=== PATIENT | female | born 1995 | race Caucasian/White ===

== ENCOUNTER 2017-05-16 20:49 | Emergency (ER) | payer SELFPAY ==
--- NOTE | 2017-05-16 21:59 | ED PDOC ---
Arrival/HPI - General Chief Complaint: Back Pain Time Seen by Provider: 05/16/17 21:19 Historian: Patient - History of Present Illness Narrative History of Present Illness (Text): 05/16/17 21:55 21 year old female, wit history of kidney pain. presenting 1 month ago with sore throat, headache, fever. She had taken what was left of 's abx and symptoms subsided. However they then came back within few days. 2 weeks ago started experiencing right flank pain. 2 days ago, began experiencing dysuria. Still complaining of fever, chills, nausea, diarrrhea, throat pain, and lump under right jaw. States that she had similar kidney pain before and was treated in [place] with abx and citric acid. Moved to [facility] 5 years ago from [place]. She also reports had period last month after not having one for 3 months. Described as heavy bleeding and painful. No PMD Past Medical History - Provider Review Nursing Documentation Reviewed: Yes - Infectious Disease Hx of Infectious Diseases: None - Psychiatric Hx Substance Use: No - Anesthesia Hx Anesthesia: No Family/Social History - Physician Review Nursing Documentation Reviewed: Yes Family/Social History: No Known Family HX Smoking Status: Never Smoked Hx Alcohol Use: No Hx Substance Use: No Allergies/Home Meds Allergies/Adverse Reactions: Allergies No Known Allergies Allergy (Verified 05/16/17 21:07) Review of Systems - Review of Systems Constitutional: Fevers Eyes: Normal ENT: Other (throat pain) Respiratory: Normal Cardiovascular: Normal Gastrointestinal: Diarrhea, Nausea Genitourinary Female: absent: Dysuria Musculoskeletal: Other (right flank pain) Skin: Normal Neurological: Headache Endocrine: Normal Hemo/Lymphatic: Normal Psychiatric: Normal Physical Exam Vital Signs Reviewed: Yes Vital Signs Temp Pulse Resp BP Pulse Ox 05/16/17 21:07 97.4 F L 116 H 16 129/88 99 Temperature: Afebrile Blood Pressure: Normal Pulse: Regular Respiratory Rate: Normal Appearance: Positive for: Well-Appearing Pain Distress: None Mental Status: Positive for: Alert and Oriented X 3 - Systems Exam Pharnyx: Present: ERYTHEMA Neck: Present: Other (bilateral adenopathy; tender to palpation) Respiratory/Chest: Present: Clear to Auscultation, Good Air Exchange. No: Respiratory Distress, Accessory Muscle Use Cardiovascular: Present: Regular Rate and Rhythm, Normal S1, S2. No: Murmurs Abdomen: Present: Tenderness (RUQ/RLQ and surpapubic tenderness) Medical Decision Making ED Course and Treatment: 05/16/17 21:56 Impression: 21 year old female with right flank pain. Plan: -- Chest X-ray -- Labs -- Urinalysis -- Toradol -- Reassess and disposition Progress Notes: - Lab Interpretations Lab Results: 05/16/17 22:00 Lab Results 05/16/17 22:00: Urine Color Yellow, Urine Appearance Clear, Urine pH 6.0, Ur Specific [place] 1.010, Urine Protein Negative, Urine Glucose (UA) Negative, Urine Ketones Negative, Urine Blood Negative, Urine Nitrate Negative, Urine Bilirubin Negative, Urine Urobilinogen 0.2, Ur Leukocyte Esterase Trace H, Urine RBC 0 - 2, Urine WBC 1 - 3, Ur Epithelial Cells 10 - 12, Urine Bacteria Many, Urine HCG, Qual Negative 05/16/17 22:00: WBC 13.4 H, RBC 4.51, Hgb 13.2, Hct 39.9, MCV 88.5, MCH 29.3, MCHC 33.1, RDW 14.9 H, Plt Count 442, MPV 10.9, Gran % 65.7, Lymph % (Auto) 27.1 , [place] % (Auto) 6.5 H, Eos % (Auto) 0.5 L, Baso % (Auto) 0.2, Gran # 8.78 H, Lymph # 3.6 H, Gibson # 0.9 H, Eos # 0.1, Baso # 0.03 - RAD Interpretation Radiology Orders: 05/16/17 21:38 CHEST PORTABLE [RAD] Stat - Medication Orders Current Medication Orders: Ceftriaxone Sodium (Rocephin 1 Gram Ivpb) 1 gm in 100 mls @ 200 mls/hr IVPB STAT STA PRN Reason: Protocol Stop: 05/16/17 22:55 Discontinued Medications Ketorolac Tromethamine (Toradol) 60 mg IM STAT STA Stop: 05/16/17 21:40 - Scribe Statement The provider has reviewed the documentation as recorded by the Sanjeeviboctavio Hardwick Provider Scribe Attestation: All medical record entries made by the Scribe were at my direction and personally dictated by me. I have reviewed the chart and agree that the record accurately reflects my personal performance of the history, physical exam, medical decision making, and the department course for this patient. I have also personally directed, reviewed, and agree with the discharge instructions and disposition. Disposition/Present on Arrival - Present on Arrival Any Indicators Present on Arrival: No History of DVT/PE: No History of Uncontrolled Diabetes: No Urinary Catheter: No History of Decub. Ulcer: No History Surgical Site Infection Following: None - Disposition Have Diagnosis and Disposition been Completed?: Yes Diagnosis: Cervical lymphadenitis Disposition: HOME/ ROUTINE Disposition Time: 22:55 Patient Plan: Discharge Patient Problems: Current Active Problems Problem Status Onset Cervical lymphadenitis Acute Condition: STABLE Prescriptions: Cephalexin [cephalexin] 500 mg PO QID #28 cap Referrals: Sweta Foster, [Primary Care Provider] - Follow up with primary Forms: [employer] (Syrian)
[2017-05-16 22:21] LABS: URINE BILIRUBIN NEGATIVE (NEGATIVE); URINE BLOOD NEGATIVE (NEGATIVE); URINE GLUCOSE (UA) NEGATIVE (NEGATIVE); URINE LEUKOCYTE ESTERASE TRACE Leu/uL (NEGATIVE); URINE NITRATE NEGATIVE (NEGATIVE); URINE PROTEIN NEGATIVE mg/dL (<30 mg/dL); URINE UROBILINOGEN 0.2 E.U./dL (<1 E.U./dL)
[2017-05-16 22:22] LABS: URINE APPEARANCE CLEAR (CLEAR); URINE COLOR YELLOW (YELLOW)
[2017-05-16] MEDS ORDERED: cefTRIAXone 1 gm 1 GM/100 ML BAG IVPB STA (22:26)
[2017-05-16 22:27] LABS: HCG,QUALITATIVE URINE NEGATIVE (NEGATIVE); URINE BACTERIA MANY (NEG); URINE RBC 0 - 2 /hpf (0-2)
[2017-05-16 22:45] LABS: BASO # 0.03 K/mm3 (0.0-2.0); BASO % 0.2 % (0.0-3.0); EOS # 0.1 (0.0-0.7); EOS % 0.5 % (1.5-5.0); GRAN # 8.78 (1.4-6.5); GRAN % 65.7 % (50.0-68.0); HEMOGLOBIN 13.2 g/dL (12.0-16.0); LYMPH # 3.6 (1.2-3.4); LYMPH % 27.1 % (22.0-35.0); MEAN CELL VOLUME 88.5 fl (80.0-105.0); MEAN CORPUSCULAR HEMOGLOBIN 29.3 pg (25.0-35.0); MEAN CORPUSCULAR HGB CONC 33.1 g/dl (31.0-37.0); MEAN PLATELET VOLUME 10.9 fl (7.0-11.0); MONO # 0.9 (0.1-0.6); MONO % 6.5 % (1.0-6.0); RBC 4.51 10^6/uL (3.5-6.1); RED CELL DISTRIBUTION WIDTH 14.9 % (11.5-14.5); WHITE BLOOD COUNT 13.4 10^3/ul (4.5-11.0)
[2017-05-16 22:59] LABS: ALBUMIN 5.1 g/dL (3.0-4.8); ALT/SGPT 44 U/L (7-56); AST/SGOT 49 U/L (14-36); BLOOD UREA NITROGEN 11 mg/dL (7-21); CALCIUM 9.9 mg/dL (8.4-10.5); GFR AFRICAN-AMERICAN > 60; GFR NON-AFRICAN AMERICAN > 60
[2017-05-16 23:22] LABS: ALB/GLOB RATIO 1.3 (1.1-1.8)
[2017-05-17 00:33] VITALS: BP 127/64; PULSE 81; RESP 17; TEMP 98.3; O2SAT 97
--- NOTE | 2017-05-17 08:44 | RAD ---
HISTORY: cough COMPARISON: No prior. FINDINGS: LUNGS: No active pulmonary disease. PLEURA: No significant pleural effusion identified, no pneumothorax apparent. CARDIOVASCULAR: Normal. OSSEOUS STRUCTURES: No significant abnormalities. VISUALIZED UPPER ABDOMEN: Normal. OTHER FINDINGS: None. IMPRESSION: No active disease.
== END 2017-05-17 00:35 | disposition home or self-care (01) ==
LOC: EDBD → ED 20:49
DX: I88.9 Nonspecific lymphadenitis, unspecified (principal)
CPT/HCPCS: 71045; 80053; 81001; 84703; 85025; 86308; 87086; 96365; 96372; 99284; J0696; J1885